=== PATIENT | female | born 1950 | race Caucasian/White ===

== ENCOUNTER 2017-02-27 04:33 | Inpatient (IN) | payer OTHER ==
[~2017-02-27] VITALS: Ht 154.9 cm; Wt 86.1 kg
[2017-02-27] VITALS (42 sets, daily range): BP systolic 69–138; BP diastolic 42–110
--- NOTE | ~2017-02-27 | EKG ---
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
--- NOTE | ~2017-02-27 | HC ---
[facility] [place] [address] CONSULTATION Name: CONSUELO MCCOY Room #: 236-P ADM IN M.R.#: [id number] Admission: 02/27/17 Attend Phys: Rod Daniels MD Discharge: Date of : 52 Report #: [id number] THIS REPORT FOR: //name// CC: Sebastian Daniels NO PCP DATE OF SERVICE: 02/27/2017 REFERRING PROVIDER: Rod Daniels MD REASON FOR CONSULTATION: Shortness of breath, atypical infiltrate. CHIEF COMPLAINT: Shortness of breath and fever. HISTORY OF PRESENT ILLNESS: Our group was asked to see this patient in consultation while hospitalized at [facility]. Case discussed with patient, review of records and daughter at the bedside, seems like a reasonable historian. The patient is a pleasant 66-year-old woman without any past pulmonary history, only significant medical history is history of hypertension. Started having fever several days ago with some nonproductive cough over the last 24 hours and increasing shortness of breath over the last 24 hours. She also has noted some rash with variable forms over the extremities predominantly, also over the last several days. [place] recent travel [place] actually being on the [place], did walk some trails but noted no bug bites. No tick bites. No other travel. The patient noted some chills and sweats beginning this morning, dry mouth, without any other complaints. In the Emergency Department, was noted to have mildly elevated lipase, D-dimer. A CT scan of the chest PE protocol did not reveal any pulmonary emboli. Some basilar predominant reticulonodular infiltrates were noted, which were somewhat concerning for atypical inflammatory response. Also noted to be mildly hypoxemic and in mild respiratory distress. The patient has not been febrile since admission. Denies any upper respiratory congestion, headaches, sore throat, dysphagia, only dry mouth. No neck pain or adenopathy. No chest pain. No abdominal pain, nausea, vomiting, diarrhea or constipation. Some posterior flank pain complaints without dysuria or hematuria. No new musculoskeletal joint swellings or pain. Rash as noted. PAST MEDICAL HISTORY: Hypertension and remote history of tobacco use. MEDICATIONS: Include metoprolol and Estrace. SOCIAL HISTORY: Remote smoker. No significant alcohol consumption. Currently retired. Lives with . FAMILY HISTORY: Negative for any significant pulmonary disease. [address] [address] CONSULTATION Name: CONSUELO MCCOY Room #: 236-P [facility] IN M.R.#: [id number] Admission: 02/27/17 Attend Phys: Rod Daniels MD Discharge: Date of : 52 Report #: [id number] REVIEW OF SYSTEMS: As described in HPI. Extensively reviewed 14-point review of systems. PHYSICAL EXAMINATION: VITAL SIGNS: Afebrile. Pulse 90s and regular, respiratory rate 30, blood pressure 109/64 and oxygen saturation 95% on 2 liters. GENERAL: A pleasant, although somewhat somnolent and ill appearing elderly woman, in mild respiratory distress. ENT: Clear oropharynx. NECK: Supple. No lymphadenopathy. LUNGS: Basilar inspiratory crackles as well expiratory wheezes noted throughout. CARDIOVASCULAR: Heart is regular. No murmurs noted. ABDOMEN: Soft and nontender. No masses. No hepatosplenomegaly. Bowel sounds are active. EXTREMITIES: Warm with slightly diminished pulses. No edema noted. INTEGUMENT: Did reveal maculopapular rash noted predominantly over the extremities. LABORATORY DATA: CT scan as described in HPI. White blood cell count 10,000; hemoglobin 15; hematocrit 44 and platelet count 172. Sodium is 138, potassium 3.3, chloride 104 and bicarbonate ____. BUN 8 and creatinine 1.0. Glucose 127. Liver enzymes normal. Lipase mildly elevated at 982. D-dimer is 14.2. Initial arterial blood gas revealed pH 7.34, pCO2 36, pO2 70, bicarbonate 19. Normal lactate. ANCA is pending. ESR is pending and a pending nasal swab requested by me for respiratory. Viral panel is pending. IMPRESSION: 1. Atypical pulmonary infiltrates, seems to be predominantly basilar and nodular with some associated bronchospasm noted on exam. 2. Extensive mediastinal and hilar adenopathy. Differential diagnoses includes reactive lymphadenopathy, sarcoidosis, lymphoma, malignancy. Otherwise, there is noted very large either right thyroid enlargement of unclear significance or significant artifact in this area making it more difficult to evaluate. 3. Febrile illness. 4. Elevated lipase. 5. Hypotension, improved with fluid bolus. SUGGESTIONS: 1. Continue with ICU care. 2. Fluid bolus. 3. Trend laboratories including arterial blood gas and chest x-ray. 4. Continue the antibiotics. 5. Add bronchodilators. 6. Infectious Disease consultation. [address] [address] CONSULTATION Name: ABHISHEKKarenOCTAVIOCONSUELO G Room #: 236-P [facility] IN M.R.#: [id number] Admission: 02/27/17 Attend Phys: Rod Daniels MD Discharge: Date of : 52 Report #: [id number] 7. Check angiotensin-converting enzyme level. 8. Consider further evaluation of biopsy of lymph nodes depending on clinical response to current therapy. 9. Continue low-dose steroids. 10. Await cultures. 11. Differ additional laboratories regarding potential infectious causes to Dr. Rubén Gutiérrez. Thank you for requesting our suggestions. <ELECTRONICALLY SIGNED> By: Gil Lundberg MD 02/28/17 1304 1618 2204 Gil Lundberg MD /nt
[2017-02-27 05:10] LABS: HEMATOCRIT 44.5 % (37.0-47.0); HEMOGLOBIN 15.3 gm/dL (12.0-15.0); MCH 31.9 pg (26.0-34.0); MCHC 34.4 g/dL (28.0-37.0); MCV 92.8 fL (80.0-100.0); PLATELET COUNT 172 thou/uL (150-400); RDW 13.3 % (10.5-14.5); WBC 10.2 thou/uL (4.0-11.0)
[2017-02-27 05:17] LABS: ANION GAP 13 mmol/L (7-16); BUN 8 mg/dL (7-18); CALCIUM 8.8 mg/dL (8.5-10.1); CHLORIDE 104 mmol/L (98-107); CO2 21 mmol/L (21-32); GLUCOSE 127 mg/dL (74-106); POTASSIUM 3.3 mmol/L (3.5-5.1); SODIUM 138 mmol/L (136-145)
[2017-02-27 05:23] LABS: MANUAL DIFF YES
[2017-02-27 05:26] LABS: ALBUMIN 2.8 g/dL (3.4-5.0); ALKALINE PHOSPHATASE 87 U/L (46-116); DIRECT BILIRUBIN 0.2 mg/dL (<0.1-0.3); SGOT 21 U/L (15-37); SGPT 26 U/L (30-65); TOTAL BILIRUBIN 0.7 mg/dL (<0.1-1.0); TOTAL PROTEIN 7.3 g/dL (6.4-8.2); TROPONIN-I < 0.04 ng/mL (<0.04-0.07)
[2017-02-27] MEDS ORDERED: TOPROL XL25 MG PO (05:31)
[2017-02-27] MEDS ORDERED: ESTRACE0.5 MG PO (05:33)
[2017-02-27 06:00] LABS: ABSOLUTE NEUTROPHILS 8.8 thou/uL (1.4-8.2); MYELOCYTES 1 %; TOTAL CELL COUNT 100
[2017-02-27 06:31] LABS: URINE BILIRUBIN 1+ (Negative); URINE BLOOD NEGATIVE (Negative); URINE COLOR YELLOW; URINE GLUCOSE-RANDOM* NEGATIVE (Negative); URINE KETONES TRACE (Negative); URINE PROTEIN (DIPSTICK) TRACE (Negative); URINE UROBILINOGEN 0.2 E.U./dl (0.2-1.0)
[2017-02-27 06:38] LABS: URINE LEUKOCYTES-REFLEX 2+ (Negative)
[2017-02-27 06:41] LABS: ICTOTEST (BILI CONFIRMATORY) Positive (Negative)
[2017-02-27 06:56] LABS: HYALINE CASTS 0-3 Few /LPF (None Seen); SQUAMOUS >10 Many /LPF (0-3)
[2017-02-27 06:57] LABS: CRYSTALS None Seen /LPF (None Seen); URINE RBC 0-2 Rare /HPF (0-2); URINE WBC-REFLEX 6-15 Few /HPF (0-5)
[2017-02-27 09:34] LABS: ABG SAMPLE TYPE ARTERIAL; BE(vivo) -6.1 mmol/L (-2 to +3); LACTATE 1.41 mmol/L (0.5-2.0); O2(CT) 19.4 mL/dL (15.0-23.0); O2Hb 92.8 % (92.0-98.0); PCO2 36.1 mmHg (35.0-45.0); PO2 70.3 mmHg (80.0-100.0); STICK SITE R.BRACHIAL; pH 7.338 (7.360-7.450); sO2 93.3 % (92.0-98.0); tCO2 20.1 mmol/L (24.0-30.0)
[2017-02-27 17:24] LABS: INR 1.2; PROTIME 12.6 Seconds (9.3-11.4)
[2017-02-28] VITALS (19 sets, daily range): BP systolic 105–145; BP diastolic 54–81
[2017-02-28 05:31] LABS: ABG SAMPLE TYPE ARTERIAL; BE(vivo) -7.4 mmol/L (-2 to +3); HCO3 16.5 mmol/L (22.0-26.0); LACTATE 1.23 mmol/L (0.5-2.0); O2(CT) 18.5 mL/dL (15.0-23.0); O2Hb 95.3 % (92.0-98.0); PCO2 29.3 mmHg (35.0-45.0); PO2 83.3 mmHg (80.0-100.0); STICK SITE R.BRACHIAL; pH 7.368 (7.360-7.450); sO2 96.1 % (92.0-98.0); tCO2 17.4 mmol/L (24.0-30.0)
[2017-02-28 09:01] LABS: ALBUMIN 2.4 g/dL (3.4-5.0); CALCIUM 7.7 mg/dL (8.5-10.1); CREATININE 0.8 mg/dL (0.6-1.0); POTASSIUM 3.7 mmol/L (3.5-5.1); TOTAL BILIRUBIN 0.3 mg/dL (<0.1-1.0); TOTAL PROTEIN 6.5 g/dL (6.4-8.2)
[2017-02-28 10:07] LABS: HEMATOCRIT 39.1 % (37.0-47.0); MCH 31.5 pg (26.0-34.0); MCHC 33.6 g/dL (28.0-37.0); MCV 93.5 fL (80.0-100.0); PLATELET COUNT 182 thou/uL (150-400); RBC 4.18 mil/uL (4.20-5.00); RDW 13.9 % (10.5-14.5); WBC 19.8 thou/uL (4.0-11.0)
[2017-02-28 10:08] LABS: HEMOGLOBIN 13.1 gm/dL (12.0-15.0)
[2017-02-28 10:09] LABS: MANUAL DIFF YES
[2017-02-28 10:28] LABS: ABSOLUTE NEUTROPHILS 16.4 thou/uL (1.4-8.2); TOTAL CELL COUNT 100
[2017-02-28 12:10] LABS: IgG 1356 mg/dL (700-1600); IgM 140 mg/dL (26-217)
[2017-02-28 23:11] LABS: HIV ANTIBODY Non Reactive (Non Reactive)
[2017-03-01] VITALS (7 sets, daily range): BP systolic 140–168; BP diastolic 80–89
[2017-03-01 02:09] LABS: IgA 392 mg/dL (87-352)
[2017-03-01 10:08] LABS: HEMATOCRIT 40.2 % (37.0-47.0); HEMOGLOBIN 13.2 gm/dL (12.0-15.0); MCH 30.9 pg (26.0-34.0); MCHC 32.8 g/dL (28.0-37.0); PLATELET COUNT 223 thou/uL (150-400); RBC 4.28 mil/uL (4.20-5.00); RDW 14.3 % (10.5-14.5); WBC 22.5 thou/uL (4.0-11.0)
[2017-03-01 10:15] LABS: MANUAL DIFF YES
[2017-03-01 10:20] LABS: CALCIUM 9.1 mg/dL (8.5-10.1); POTASSIUM 3.7 mmol/L (3.5-5.1)
[2017-03-01 10:44] LABS: ABSOLUTE NEUTROPHILS 17.8 thou/uL (1.4-8.2); PLATELET ESTIMATE NORMAL; TOTAL CELL COUNT 100
[2017-03-01 23:07] LABS: INFLUENZA B Negative (Negative); METAPNEUMOVIRUS Negative (Negative)
[2017-03-02 05:00] VITALS: BP 153/70
[2017-03-02 05:57] LABS: HEMATOCRIT 39.2 % (37.0-47.0); HEMOGLOBIN 13.1 gm/dL (12.0-15.0); MCH 31.3 pg (26.0-34.0); MCHC 33.3 g/dL (28.0-37.0); MCV 94.1 fL (80.0-100.0); RBC 4.17 mil/uL (4.20-5.00); RDW 14.1 % (10.5-14.5); WBC 20.9 thou/uL (4.0-11.0)
[2017-03-02 06:03] LABS: CALCIUM 8.8 mg/dL (8.5-10.1); CREATININE 0.8 mg/dL (0.6-1.0); POTASSIUM 4.2 mmol/L (3.5-5.1)
[2017-03-02 06:12] LABS: COMPLEMENT, TOTAL (CH50) 21 U/mL (42-60)
[2017-03-02 07:07] VITALS: BP 180/99
[2017-03-02 08:17] VITALS: BP 184/112
[2017-03-02 12:15] VITALS: BP 186/104
[2017-03-02 16:34] VITALS: BP 182/94
[2017-03-02 19:10] VITALS: BP 184/91
[2017-03-03 05:05] LABS: HEMOGLOBIN 13.8 gm/dL (12.0-15.0); MCH 31.4 pg (26.0-34.0); MCHC 33.7 g/dL (28.0-37.0); MCV 93.2 fL (80.0-100.0); PLATELET COUNT 247 thou/uL (150-400); RDW 13.7 % (10.5-14.5); WBC 18.2 thou/uL (4.0-11.0)
[2017-03-03 05:10] VITALS: BP 173/98
[2017-03-03 05:14] LABS: MANUAL DIFF YES
[2017-03-03 07:00] VITALS: BP 190/102
[2017-03-03 09:41] LABS: ABSOLUTE NEUTROPHILS 12.9 thou/uL (1.4-8.2); ATYPICAL LYMPHS 1 %; METAMYELOCYTES 1 %; TOTAL CELL COUNT 100
[2017-03-03 11:43] VITALS: BP 169/81
[2017-03-03] MEDS ORDERED: DOXYCYCLINE 10100 MG PO (13:09)
[2017-03-03] MEDS ORDERED: LORATIDINE 10 M10 M1 PO (13:09)
[2017-03-03] MEDS ORDERED: CEFUROXIME500 MG PO (13:10)
[2017-03-03] MEDS ORDERED: NORVASC10 MG PO (13:10)
[2017-03-03] MEDS ORDERED: VENTOLIN HFA 1818 GM INH (13:10)
[2017-03-03] MEDS ORDERED: PREDNISONE 10 M10 MG PO (13:11)
[2017-03-03 13:31] VITALS: BP 169/81
[2017-03-04 10:07] LABS: A/G RATIO 0.8 (0.7-1.7); ALBUMIN 2.8 g/dL (2.9-4.4); ALPHA 1 0.3 g/dL (0.0-0.4); ALPHA 2 0.8 g/dL (0.4-1.0); BETA 0.8 g/dL (0.7-1.3); GAMMA 1.5 g/dL (0.4-1.8); M-SPIKE Not Observed g/dL (Not Observed)
[2017-03-04 12:09] LABS: LYME ANTIBODY SCREEN* <0.91 ISR (0.00-0.90)
[2017-03-04 13:10] LABS: SYPHILIS AB Negative (Negative)
[2017-03-04 18:11] LABS: c-ANCA <1:20 titer (Neg:<1:20); p-ANCA <1:20 titer (Neg:<1:20)
== END 2017-03-03 14:50 | disposition home or self-care (01) | DRG 871 ==
LOC: ER 04:33 → ICU 06:28 → EROBS 06:28 → ICU 09:32 → 4W 02-28 16:38
PROVIDERS: Emergency Medicine; Hospitalist; Internal Medicine Infectious Disease; Internal Medicine Pulmonary Disease; Nurse Practitioner; Specialist
DX: A41.9 Sepsis, unspecified organism (principal); R65.21 Severe sepsis with septic shock; K85.90 Acute pancreatitis without necrosis or infection, unspecified; J96.01 Acute respiratory failure with hypoxia; J18.9 Pneumonia, unspecified organism; N12 Tubulo-interstitial nephritis, not specified as acute or chronic; E46 Unspecified protein-calorie malnutrition; I10 Essential (primary) hypertension; R59.9 Enlarged lymph nodes, unspecified; E87.6 Hypokalemia; R21 Rash and other nonspecific skin eruption; Z87.891 Personal history of nicotine dependence; Z82.49 Family history of ischemic heart disease and other diseases of the circulatory system; Z68.35 Body mass index [BMI] 35.0-35.9, adult
CPT/HCPCS: 10045; 10078

== ENCOUNTER → 2017-03-13 | Outpatient (CLI) | payer OTHER ==
[~2017-03-13] MED LIST: CEFUROXIME500 MG PO; DOXYCYCLINE 10100 MG PO; ESTRACE0.5 MG PO; LORATIDINE 10 M10 M1 PO; NORVASC10 MG PO; PREDNISONE 10 M10 MG PO; TOPROL XL25 MG PO; VENTOLIN HFA 1818 GM INH
== END ==
LOC: RAD 09:32
DX: R91.8 Other nonspecific abnormal finding of lung field (principal)

== ENCOUNTER 2018-08-25 18:51 | Inpatient (IN) | payer OTHER ==
[~2018-08-25] VITALS: Ht 154.9 cm; Wt 71.2 kg
[2018-08-25] VITALS (8 sets, daily range): BP systolic 91–120; BP diastolic 42–53
[2018-08-25 19:21] LABS: HEMATOCRIT 42.4 % (37.0-47.0); HEMOGLOBIN 14.4 gm/dL (12.0-15.0); MCH 30.8 pg (26.0-34.0); MCHC 33.8 g/dL (28.0-37.0); PLATELET COUNT 202 thou/uL (150-400); RBC 4.66 mil/uL (4.20-5.00); RDW 13.1 % (10.5-14.5); WBC 8.2 thou/uL (4.0-11.0)
[2018-08-25 19:31] LABS: ANION GAP 14 mmol/L (7-16); BUN 21 mg/dL (7-18); CALCIUM 9.5 mg/dL (8.5-10.1); CHLORIDE 106 mmol/L (98-107); CO2 20 mmol/L (21-32); CREATININE 1.2 mg/dL (0.6-1.0); GLUCOSE 134 mg/dL (74-106); POTASSIUM 3.6 mmol/L (3.5-5.1); SODIUM 140 mmol/L (136-145)
[2018-08-25 19:40] LABS: TROPONIN-I <0.06 ng/mL (<0.06)
[2018-08-25 19:58] LABS: ABSOLUTE NEUTROPHILS 7.1 thou/uL (1.4-8.2); ANISOCYTOSIS 1+; POLYCHROMASIA OCCASIONAL
[2018-08-25 20:31] LABS: ALBUMIN 2.9 g/dL (3.4-5.0); DIRECT BILIRUBIN 0.1 mg/dL (<0.1-0.3); TOTAL BILIRUBIN 0.5 mg/dL (<0.1-1.0); TOTAL PROTEIN 7.1 g/dL (6.4-8.2)
--- NOTE | 2018-08-25 23:01 | NUR ---
PT ADMITTED to room 244 from ED; alert, oriented x4; monitor sinus rhythm- sinus tachycardia, on levophed at 10 mcg/min for hypotension. Skin warm and clammy. No skin breakdown noted. Sat > 95% on 3 L can[place], lungs clear and diminished.
[2018-08-26] VITALS (40 sets, daily range): BP systolic 89–149; BP diastolic 37–108
[2018-08-26] MEDS ORDERED: TUMS PO (00:37)
[2018-08-26] MEDS ORDERED: VITAMIN D3400 UNIT PO (00:37)
[2018-08-26] MEDS ORDERED: MUCINEX1200 MG PO (00:38)
[2018-08-26] MEDS ORDERED: MELATONIN5 M1 PO (00:38)
[2018-08-26] MEDS ORDERED: FLONASE 0.05%50 MCG NASAL (00:38)
[2018-08-26 02:11] LABS: URINE BILIRUBIN 1+ (Negative); URINE BLOOD NEGATIVE (Negative); URINE CLARITY SL CLOUDY; URINE COLOR YELLOW; URINE GLUCOSE-RANDOM* NEGATIVE (Negative); URINE KETONES TRACE (Negative); URINE LEUKOCYTES-REFLEX TRACE (Negative); URINE NITRITE-REFLEX NEGATIVE (Negative); URINE PROTEIN (DIPSTICK) 1+ (Negative); URINE SPECIFIC GRAVITY >= 1.030 (1.005-1.035); URINE UROBILINOGEN 0.2 E.U./dl (0.2-1.0)
[2018-08-26 02:17] LABS: ICTOTEST (BILI CONFIRMATORY) Positive (Negative)
[2018-08-26 02:39] LABS: FINE GRANULAR CASTS 0-3 Few /LPF (None Seen); HYALINE CASTS 0-3 Few /LPF (None Seen); MUCUS 0-3 Light strn/LPF (None Seen); SQUAMOUS 0-3 Few /LPF (0-3)
[2018-08-26 02:40] LABS: BACTERIA-REFLEX 1-9 Few /HPF (None Seen); URIC ACID CRYSTALS >10 Many /LPF (None Seen); URINE RBC 0-2 Rare /HPF (0-2); URINE WBC-REFLEX 6-15 Few /HPF (0-5)
--- NOTE | 2018-08-26 06:18 | NUR ---
END OF SHIFT SUMMARY: Pt progressing toward discharge goals. Remains alert and oriented x4; up to BSC with minimal assist x2. Voiding without difficulty, 500 cc this shift of cloudy dark duyen urine. Formed stool x1. Remains afebrile; no cough. Able to titrate O2 down to room air, lungs still clear and diminished. Levophed titrated through out shift from 10 mcg/min on admit down to 2 mcg/min this a.m. MAP remains > 60. Tylenol given x1 for general aches with adequate relief obtained.
--- NOTE | 2018-08-26 07:34 | EKG ---
[address] [address] ELECTROCARDIOGRAM REPORT Name: CONSUELO MCCOY Room #: 244-P ADM IN M.R.#: [id number] ������������������ Admission: 08/25/18 ������������������ Attend Phys: Owen Johns MD Discharge: ������������������ Date of : 52 Report #: [id number] ����������������������������������������������������������������� [id number] THIS REPORT FOR: //name// [facility] ED Test Date: 2018-08-25 Test Time: 19:26:42 Pat Name: CONSUELO MCCOY Department: Room: [facility] Gender: F Inspector Balance Truing: audrey : 1950 Requested By: Efe Barraza Order Number: [id number] MD: Josh Garcia Measurements Intervals [place] Rate: 121 P: 67 NM: 152 QRS: 24 QRSD: 67 T: QT: 330 QTc: 469 Interpretive Statements Sinus tachycardia Nonspecific ST and T wave abnormality Compared to ECG 02/27/2017 05:11:58 No significant change was found Electronically Signed On 08-26-2018 7:34:06 CDT by Josh Garcia [email or web address] ��������������������������������������������� <ELECTRONICALLY SIGNED> ���������������������������������������� By: Josh Garcia MD, [facility] ��������������������������������������������� 08/26/18 0734 25 25 Josh Garcia MD, [facility] /EPI
--- NOTE | 2018-08-26 18:10 | NUR ---
PATIENT ALERT AND ORIENTED X4, HEADACHE CONTROLLED WITH MEDICATION. ON ROOM AIR. TOLERATING DIET. UP WITH STANDBY ASSISTANCE. EDUCATED ON INCENTIVE SPIROMETER. LAB CULTURES SENT, AWAITING RESULTS. FAMILY AND PATIENT UPDATED ON THE PLAN OF CARE, NO SIGNS OF ACUTE DISTRESS NOTED AT THIS TIME. WILL CONTINUE TO MONITOR.
[2018-08-27] VITALS (12 sets, daily range): BP systolic 110–133; BP diastolic 53–76
--- NOTE | 2018-08-27 06:12 | NUR ---
PT ALERT AND ORIENTED X 4, ON ROOM AIR, VITAL SIGNS STABLE, PT UP TO BSC WITH STANDBY ASSIST, STEADY ON HER FEET. IVF INFUSING, URINE OUTPUT ADEQUATE, NO BM.PT PROGRESSING WELL TOWARDS GOALS.
--- NOTE | 2018-08-27 12:38 | NUR ---
Conveyancer visited with the pt at bedside. She is a&ox4 and lives alone. She reports that she recently dc'd home from [facility] and readmitted here within 24hrs. She stated that they had recommended SNF but she thought she could try going home. She is now agreeable to a SNF stay. [facility] Medicare SNF provider list reviewed with the pt. She lives in [place]. [facility] [place] is out of network so her first choice is [facility]. Dc mechanical planner to fax referral and check bed availability. PT/OT evals pending. Pt likely to be dc ready 1-2 days. Will ask Karen to submit for auth if they can accept.
--- NOTE | 2018-08-27 13:06 | NUR ---
flu vaccine dc'd because pt receied vaccination in hospitalization at [facility] earlier this week.
--- NOTE | 2018-08-27 13:30 | HC ---
[facility] [place] [address] CONSULTATION Name: CONSUELO MCCOY Room #: 244-P ADM IN M.R.#: [id number] Admission: 08/25/18 ������������������ Attend Phys: Owen Johns MD Discharge: ������������������ Date of : 52 Report #: [id number] THIS REPORT FOR: //name// CC: Owen Hamlin DATE OF SERVICE: 08/26/2018 INFECTIOUS DISEASES CONSULTATION REASON FOR CONSULTATION: I was asked to evaluate concerning sepsis. HISTORY OF PRESENT ILLNESS: The patient is a 67-year-old with underlying history of hypertension, stage 1 breast cancer, last week developed chills, sweats, cough with minimal sputum production. She noticed that her pier hand had similar symptoms previous to this. She presented to [facility] for further evaluation and was hospitalized for 5 days. Treated with antibiotics. Overall, improved and was dismissed to post-acute care, but the patient refused. She went home and within 6 hours developed chills, nausea, abdominal discomfort, shortness of breath, fever and returned now to [facility]. She was hypotensive, tachycardic, was given IV fluids and admitted to the Intensive Care Unit. She was brought in by ambulance. She has had loose stools. Her shortness of breath has improved. Her abdominal pain has improved. It was noted that she completed a course of antibiotics and was dismissed on inhaler. She has had no travel outside the [place]. No HIV risk factors. No animal exposure. Did not have an influenza vaccination. Nonsmoker. No HIV risk factors. REVIEW OF SYSTEMS: She denies any headache, chest pain, hemoptysis, sore throat, dysuria or frequency. No back or flank pain. No other neurologic issues. A 10-point review was negative other than what is described above. ALLERGIES: None. MEDICATIONS: As noted on her MAR, having been given vancomycin, Zosyn and Levaquin in the Emergency Room. PAST MEDICAL HISTORY: Hypertension; hernia surgery; breast cancer, stage 1, status post lumpectomy. FAMILY HISTORY: Heart disease, hypertension. SOCIAL HISTORY: Nonsmoker, no significant alcohol intake. [address] [address] CONSULTATION Name: CONSUELO MCCOY Room #: 244-P [facility] IN .R.#: [id number] Admission: 08/25/18 ������������������ Attend Phys: Owen Johns MD Discharge: ������������������ Date of : 52 Report #: [id number] PHYSICAL EXAMINATION: VITAL SIGNS: She was afebrile and hemodynamically stable. GENERAL: She is sitting up in her chair, in no distress. HEENT: Eyes without scleral icterus or conjunctivitis. Mouth without mucositis. Only had a few teeth present. NECK: Supple, with no thyromegaly or mass. LUNGS: Clear. HEART: Regular, without murmur. ABDOMEN: Soft, nontender, no hepatosplenomegaly or mass. No CVA tenderness. Spine was nontender. EXTREMITIES: Without edema, cyanosis, clubbing or wounds. SKIN: Without rash. No palpable adenopathy. NEUROLOGIC: Cranial nerves intact. Strength in the upper or lower extremities was normal. Mood normal. LABORATORY STUDIES: Blood cultures are negative to date. Urinalysis: A few wbc's, rare rbc's, a few bacteria. Hemoglobin 14.1; WBC 8.2; platelet count 202,000; 84% segs and 2% bands. Lactate 2.7, creatinine 1.2, bicarbonate 20, basilar atelectasis. Influenza antigen negative. Ultrasound of the abdomen, minimally prominent common bile duct. Fever, chills, hypotension following recent hospital stay for community-acquired pneumonia. Source of infection is not evident at this time. The patient has no leukocytosis. Overall, feels better and is now off oxygen. She did have a few loose stools, but this has resolved. They were not consistent with C. difficile. RECOMMENDATION: We will continue empiric antibiotics while awaiting culture results. We would like to monitor her for the next 24-48 hours and assess for any further change. We will obtain outside records. I have discussed with the patient and her family and nursing at the bedside. ��������������������������������������������� <ELECTRONICALLY SIGNED> ���������������������������������������� By: Rubén Gutiérrez MD ��������������������������������������������� 08/27/18 1330 1528 0301 Rubén Gutiérrez MD /nt
--- NOTE | 2018-08-27 14:13 | NUR ---
[facility] WITH DORINDA IN ADM. SHE RECEIVED REFERRAL AND WILL REVIEW. RACHID NOTIFIED HER THAT OT NOTES NOT AVAILABLE YET. BUT IF PT. ACCEPTED TO SUBMIT FOR AUTH. ANTICIPATE DC 1-2 SAYS. RACHID TO FOLLOW.
--- NOTE | 2018-08-27 16:46 | NUR ---
PT TRANSFERED FOR ICU 1400 WITH FAMILY BEDSIDE. ALERT X4, UP WITH WALKER STAND BY ASSIST. SEEN BY PT IN ICU. SEEN BY OT WHEN SHE [place] AND GIVEN A SHOWER. PT UNDERSTANDS SHE WILL DC TO REHAB TO GAIN STRENGHT BEFORE RETURNIG HOME. FALL PRECAUTIONS REMAIN IN PLACE. CALL LIGHT IN REACH.
--- NOTE | 2018-08-28 02:05 | NUR ---
ASSUMED CARE AT 1900. AXOX4. MELATONIN INC TO 10MG PER PT REQUEST. LEVAQUIN HUNG. TYLENOLE GIVEN FOR BODY ACHES. NO S/S ACUTE DISTRESS NOTED OR REPORTED AT THIS TIME. WILL CONT TO MONITOR FOR ANY CHANGES IN CONDITION.
[2018-08-28 03:53] VITALS: BP 128/68
[2018-08-28 05:50] LABS: HEMATOCRIT 34.7 % (37.0-47.0); MCH 31.2 pg (26.0-34.0); MCHC 34.3 g/dL (28.0-37.0); RBC 3.81 mil/uL (4.20-5.00); RDW 13.1 % (10.5-14.5); WBC 9.3 thou/uL (4.0-11.0)
[2018-08-28 06:03] LABS: HEMOGLOBIN 11.9 gm/dL (12.0-15.0)
[2018-08-28 06:08] LABS: CALCIUM 8.8 mg/dL (8.5-10.1); CREATININE 0.8 mg/dL (0.6-1.0); POTASSIUM 3.9 mmol/L (3.5-5.1)
[2018-08-28 08:27] VITALS: BP 129/73
[2018-08-28 15:11] VITALS: BP 124/70
--- NOTE | 2018-08-28 15:13 | NUR ---
DCP FAXED TODAY'S OT/PT NOTES TO [facility] FOR AUTH. SPOKE WITH DEUCE IN ADM. SHE RECEIVED THERAPY NOTES AND RECEIVED AUTH. NOTIFIED SW OF AUTH AND SHE WILL NOTIFY DR. TREVIÑO FOR DC ORDERS. DCP TO FOLLOW.
[2018-08-28] MEDS ORDERED: TUMS PO (15:25)
[2018-08-28] MEDS ORDERED: PROBIOTIC1 EAC1 PO (15:25)
--- NOTE | 2018-08-28 15:25 | NUR ---
DC CLOTH NEUTRALIZER INDICATED THAT [facility] HAD GOTTEN AUTH FOR PT TO ADMIT THIS DAY. CARE TEAM INDICATED PT IS MEDICALLY STABLE TO [facility]. CHART COPY MADE. ORDERS TO BE FAXED ONCE MEDICALLY STABLE. REPORT TO BE CALLED TO ([phone]. PT IS AWARE AND AGREEABLE. NO OTHER CM INTERVENTION INDICATED AT THIS TIME. CASE CLOSED.
[2018-08-28] MEDS ORDERED: LEVAQUIN 750 M750 MG PO (15:31)
[2018-08-28] MEDS ORDERED: ALBUTEROL2.5 MG/3 M INH (15:35)
--- NOTE | 2018-08-28 16:11 | NUR ---
PT. DISCHARGING TODAY TO [facility]. FAXED DC ORDERS/SUMMARY TO FACILITY SPOKE WITH DEUCE IN ADM. SHE RECEIVED DC ORDERS AND SET UP TRANSPORTATION VIA [facility] FOR 1700 TODAY. LEFT MSG WITH PT'S DTR'S DEUCE AND LOVELY OF DISCHARGE AND TIME OF TRANSPORTATION. UNIT NOTIFIED AND CHART COPY PER US. RN TO CALL REPORT TO [phone].
[2018-08-28 16:27] VITALS: BP 124/70
--- NOTE | 2018-08-28 16:50 | NUR ---
VSS-AFEBRILE. LUNGS WHEEZY IN ALL LOBES BILATERALLY, WHEEZES CLEARED WELL POST BREATHING TREATMENT. ROOM AIR, WITH SLIGHT SOA ON EXERTION. OOB THIS SHIFT WITH NURSING AND PHYSICAL THERAPY, ABLE TO AMBULATE WITH SBA AND WALKER. TOLERATES MEALS WITH NO REPORTED N/V. GENERALIZED BODAY ACHES AND PAINS RELIEVED WITH PO TYLENOL. DISCUSSED DC INSTRUCTIONS TO [facility], PATIENT VERBALIZES UNDERSTANDING. IV AND TELEMETRY DISCONTINUED, PATIENT TRANSPORTED BY WC TO [facility].
[2018-08-31 10:09] LABS: ADENOVIRUS Negative (Negative); INFLUENZA A Negative (Negative); INFLUENZA B Negative (Negative); METAPNEUMOVIRUS Negative (Negative); PARAINFLUENZA 1 Negative (Negative); PARAINFLUENZA 2 Negative (Negative); PARAINFLUENZA 3 Negative (Negative); RHINOVIRUS Negative (Negative); RSV A Negative (Negative); RSV B Negative (Negative)
== END 2018-08-28 16:56 | DRG 871 ==
LOC: ER 18:51 → 4W 21:06 → EROBS 21:06 → ICU 21:06 → 4W 08-27 13:32
PROVIDERS: Emergency Medicine; Hospitalist; Specialist; ADMIT Internal Medicine
DX: A41.9 Sepsis, unspecified organism (principal); J18.9 Pneumonia, unspecified organism; J96.91 Respiratory failure, unspecified with hypoxia; R65.21 Severe sepsis with septic shock; N17.9 Acute kidney failure, unspecified; E46 Unspecified protein-calorie malnutrition; I10 Essential (primary) hypertension; I95.9 Hypotension, unspecified; R74.0 Nonspecific elevation of levels of transaminase and lactic acid dehydrogenase [LDH]; T37.5X5A Adverse effect of antiviral drugs, initial encounter; Z68.29 Body mass index [BMI] 29.0-29.9, adult; Z87.891 Personal history of nicotine dependence; Z85.3 Personal history of malignant neoplasm of breast; Z82.49 Family history of ischemic heart disease and other diseases of the circulatory system; Z28.9 Immunization not carried out for unspecified reason; Z79.899 Other long term (current) drug therapy
CPT/HCPCS: 10045; 10078

== ENCOUNTER → 2018-10-10 | Outpatient (CLI) | payer OTHER ==
[~2018-10-10] MED LIST changes: +ALBUTEROL2.5 MG/3 M INH; +FLONASE 0.05%50 MCG NASAL; +LEVAQUIN 750 M750 MG PO; +MELATONIN5 M1 PO; +MUCINEX1200 MG PO; +PROBIOTIC1 EAC1 PO; +TUMS PO; +VITAMIN D3400 UNIT PO
[2018-10-10 11:06] LABS: CREATININE 0.7 mg/dL (0.6-1.0)
== END ==
LOC: CAT 09:35
PROVIDERS: Internal Medicine Pulmonary Disease
DX: E04.9 Nontoxic goiter, unspecified (principal); R59.0 Localized enlarged lymph nodes

== ENCOUNTER 2018-10-18 12:23 | Emergency (ER) | payer OTHER ==
[~2018-10-18] VITALS: Ht 154.9 cm; Wt 70.8 kg
[2018-10-18] MEDS ORDERED: FLONASE 0.05%50 MCG NASAL (12:45)
[2018-10-18] MEDS ORDERED: CLARITIN10 MG PO (12:45)
[2018-10-18 12:52] LABS: ABSOLUTE NEUTROPHILS 4.5 thou/uL (1.4-8.2); BASOPHILS 1.8 % (0.0-2.0); EOSINOPHILS 3.6 % (0.0-3.0); HEMATOCRIT 41.8 % (37.0-47.0); HEMOGLOBIN 14.3 gm/dL (12.0-15.0); LYMPHOCYTES 37.6 % (24.0-44.0); MCH 31.1 pg (26.0-34.0); MCHC 34.2 g/dL (28.0-37.0); MONOCYTES 5.1 % (1.0-8.0); PLATELET COUNT 336 thou/uL (150-400); POLYS 51.9 % (36.0-66.0); RBC 4.59 mil/uL (4.20-5.00); RDW 13.4 % (10.5-14.5); WBC 8.6 thou/uL (4.0-11.0)
[2018-10-18 13:01] LABS: ANION GAP 10 mmol/L (7-16); BUN 10 mg/dL (7-18); CALCIUM 10.4 mg/dL (8.5-10.1); CHLORIDE 102 mmol/L (98-107); CO2 25 mmol/L (21-32); CREATININE 0.7 mg/dL (0.6-1.0); GLUCOSE 114 mg/dL (74-106); SODIUM 137 mmol/L (136-145)
[2018-10-18 13:10] LABS: SGOT 16 U/L (15-37); SGPT 26 U/L (30-65); TOTAL BILIRUBIN 0.9 mg/dL (<0.1-1.0); TOTAL PROTEIN 7.9 g/dL (6.4-8.2); TROPONIN-I <0.06 ng/mL (<0.06)
[2018-10-18] MEDS ORDERED: CLEOCIN HCL150 MG PO ×2 (14:28→14:29)
[2018-10-18] MEDS ORDERED: PREDNISONE 20 M20 M1 PO (14:46)
[2018-10-18 14:52] VITALS: BP 136/83
--- NOTE | 2018-10-18 15:48 | EKG ---
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 : 1950 Requested By: Paul Garzon Order Number: [id number] MD: Luisito Seymour Measurements Intervals [place] Rate: 104 P: 41 DE: 194 QRS: 4 QRSD: 83 T: 12 QT: 331 QTc: 436 Interpretive Statements Sinus tachycardia Left ventricular hypertrophy Inferior infarct, old Compared to ECG 08/25/2018 19:26:42 Left ventricular hypertrophy now present Myocardial infarct finding now present ST (T wave) deviation no longer present Electronically Signed On 10-18-2018 15:48:22 CDT by Luisito Seymour [email or web address] ��������������������������������������������� <ELECTRONICALLY SIGNED> ���������������������������������������� By: Luisito Seymour MD ��������������������������������������������� 10/18/18 1548 1232 1232 Luisito Seymour MD /EPI
== END 2018-10-18 14:53 | disposition home or self-care (01) ==
LOC: ER 12:23
PROVIDERS: Physician Assistant
DX: J02.9 Acute pharyngitis, unspecified (principal); R09.82 Postnasal drip; I10 Essential (primary) hypertension; Z85.3 Personal history of malignant neoplasm of breast; Z90.11 Acquired absence of right breast and nipple; Z87.891 Personal history of nicotine dependence; Z88.1 Allergy status to other antibiotic agents

== ENCOUNTER → 2018-11-03 | Outpatient (CLI) | payer OTHER ==
[~2018-11-03] MED LIST changes: +CLARITIN10 MG PO; +CLEOCIN HCL150 MG PO; +PREDNISONE 20 M20 M1 PO
== END ==
LOC: ULTRA 16:15
DX: E04.2 Nontoxic multinodular goiter (principal)

== ENCOUNTER → 2019-01-01 | Outpatient (CLI) | payer OTHER ==
--- NOTE | 2019-01-02 16:11 | PATH ---
[facility] [place] [address] PATHOLOGY RPT PROCEDURE Name: CONSUELO MCCOY Room #: REG [facility].#: [id number] ������������������ Admission: 01/01/19 ������������������ Date of : 52 Discharge: Report #: [id number] Path Case #: [id number] Note [facility] Accession Number: [id number] TESTS RESULT FLAG UNITS REF RANGE LAB Clinician Provided Cytology Information No. of containers..01 Other (Miscellaneous) Source: RT THYROID NODULE DIAGNOSIS: RT THYROID NODULE INCONCLUSIVE. BETHESDA CATEGORY III. ATYPIA OF UNDETERMINED SIGNIFICANCE. THIS INTERPRETATION INCLUDES EVALUATION OF A CELL BLOCK. GROUPS OF HURTHLE CELLS WITH MILD NUCLEAR ATYPIA AND DENSE COLLOID. Comment: Examination shows groups of follicular cells in macro and microfollicles with Hurthle cell features. Rare slides show dense colloid. The differential diagnosis for this lesion includes an adenomatoid nodule with Hurthle cell features or a Hurthle cell neoplasm. Per ultrasound report, this lesion is 25 x 20 x 23 mm. Please note sample may not be entirely product support representative; correlate clinically and follow-up as indicated. Small portion of this specimen was received in a RNA Retain Vial which is forwarded for the molecular studies. Pathologist ICD10: 02 R89.6 Signed out by: 02 Jessica Desouza MD, Pathologist NPI- [id number] Performed by: 01 Mai Sanabria, Fleet Service Clerk ([facility]) Mick Hassan, Fleet Service Clerk ([facility]) Gross description: 01 27ML, RED, CLEAR /LCS FLAG LEGEND: L-Low Normal,H-High Normal,LL-Alert Low,HH-Alert High <-Panic Low,>-Panic High,A-Abnormal,AA-Critical Abnormal Performed at: 01 [place] [facility] [address] [place] [id number] Jamil Davidson MD, 02 [facility] [address] [address] [facility] [address] [place] [address] PATHOLOGY RPT PROCEDURE Name: CONSUELO MCCOYLE Room #: REG [facility] Rm#: [id number] ������������������ Admission: 01/01/19 ������������������ Date of : 52 Discharge: Report #: [id number] Path Case #: [id number] Jessica Desouza MD, Specimen Comment: A courtesy copy of this report has been sent to Specimen Comment: [phone]. Specimen Comment: Report sent to Performed at: 01 [facility] [id number] [facility] [address], [place], [place] [id number] MD Jamil Davidson MD Phone: [phone]
== END | disposition home or self-care (01) ==
LOC: RAD 02:26
DX: E04.1 Nontoxic single thyroid nodule (principal); R89.6 Abnormal cytological findings in specimens from other organs, systems and tissues; Z12.31 Encounter for screening mammogram for malignant neoplasm of breast